=== PATIENT | male | born 1985 | race Caucasian/White ===

== ENCOUNTER 2022-11-08 14:10 | Outpatient (CLI) | payer BC, SELFPAY ==
--- NOTE | ~2022-11-08 | XR_ITS ---
EXAMINATION: XR chest 2V DATE: 11/08/2022 15:09 INDICATION: Hypertension. TECHNIQUE: Frontal and lateral views of the chest were obtained. COMPARISON: None. FINDINGS: There is no pneumonia, pleural effusion, or pneumothorax. The heart size is normal. IMPRESSION: 1. No acute cardiopulmonary disease. Reviewed, dictated and finalized at location L.
--- NOTE | 2022-11-08 14:30 | ECG_ITS ---
Measurements Intervals [place] Rate: 83 P: 66 CA: 141 QRS: 82 QRSD: 109 T: -7 QT: 353 QTc: 415 Interpretive Statements SINUS RHYTHM ST-T WAVE ABNORMALITY IN INFERIOR LEADS- CONSIDER ISCHEMIA ABNORMAL ECG NO PREVIOUS ECG AVAILABLE FOR COMPARISON Electronically Signed On 11-08-2022 15:42:58 CDT by Jeferson Ruiz D.O.
[2022-11-08 15:52] LABS: Thyroid Stimulating Hormone 1.26 uIU/mL (0.36-3.74)
--- NOTE | 2022-11-11 11:57 | WPDHOLTEREM ---
Holter/Event Monitor Holter/Event Monitor Date of procedure: 11/08/22 Holter/Event Procedure: 48 Hr Holter Monitor Indications: Irregular heart beat Conclusion: 1. 48 hour holter monitor on 11/08/22. 2. Underlying rhythm is sinus rhythm. HR range 51-167 bpm; average HR 90 bpm. HR at 167 bpm was at 23:25. 3. There is 1 premature supraventricular complex. No supraventricular tachycardia. 4. There are 7 premature ventricular complexes. No ventricular tachycardia. 5. No sinoatrial or atrioventricular blocks. No significant pauses greater than 2 seconds. 6. Patient reports symptoms of feel hot with abnormal heart beat and chest pain which demonstrate sinus rhythm, HR range 82-115 bpm.
[2022-11-13 11:33] LABS: Testosterone Free 62.5 pg/mL (35.0-155.0); Testosterone Total 295 ng/dL (250-1100)
== END 2022-11-08 14:11 | disposition home or self-care (01) ==
PROVIDERS: PCP Nurse Practitioner Family; Visit Provider Nurse Practitioner Family
DX: R06.02 Shortness of breath (principal); R00.2 Palpitations; R53.83 Other fatigue; I10 Essential (primary) hypertension; R94.31 Abnormal electrocardiogram [ECG] [EKG]
CPT/HCPCS: 36415; 71046; 84402; 84403; 84439; 84443; 93005; 93225; 93226

== ENCOUNTER 2023-02-17 13:27 | Outpatient (CLI) | payer BC, SELFPAY ==
[2023-02-23 13:24] LABS: Block/Specimen ID Not Given; CALR Exon 9 Mutation Not Detected (Not Detected); CSF3R Exon 14/17 Mutation Not Detected (Not Detected); JAK2 Exon 12 Mutation Not Detected (Not Detected); JAK2 V617F Mutation Not Detected (Not Detected); MPL Exon 10 Mutation Not Detected (Not Detected); Specimen Source Blood
== END 2023-02-17 13:28 | disposition home or self-care (01) ==
LOC: ANHLAB 13:28
PROVIDERS: PCP Nurse Practitioner Family; Visit Provider Internal Medicine Hematology & Oncology
DX: D75.1 Secondary polycythemia (principal)
CPT/HCPCS: 36415; 81219; 81270; 81279; 81339; 81479

== ENCOUNTER 2024-02-05 01:25 | Day surgery (SDC) | payer BC, SELFPAY ==
[2024-01-17 12:36] VITALS: BMI 32.2
[2024-02-05 14:04] VITALS: BP 133/94; RESP 20; TEMP 36.6; O2SAT 97
[2024-02-05] MEDS: LACTATED RINGERS 1,000 ML 150 ML IV CONT (14:08)
--- NOTE | 2024-02-05 14:09 | WPDANESEPPF ---
Anes - Initial Pre Proc Eval Procedure: Operation Date: 02/05/24 14:30 Proposed Procedures p Colonoscopy - Rodolfo Schwartz MD Date/Time: 02/05/24 14:09 Surgeon: Rodolfo Schwartz MD Pre Op Diagnosis: Melena Patient Data Age: 38 Gender: M Height: 1.78 m Weight: 101.7 kg Last Vital Signs Temp 97.8 F 02/05/24 14:04 Resp 20 02/05/24 14:04 BP 133/94 H 02/05/24 14:04 Pulse Ox 97 02/05/24 14:04 O2 Del Method Room Air 02/05/24 14:04 Allergies Allergy/AdvReac Type Severity Reaction Status Date / Time cinnamon Allergy Swelling Verified 02/05/24 14:03 of Lip/Tongue/Throat Home Medications Medication Instructions Recorded Confirmed Type metoprolol succinate 100 mg 100 mg PO DAILY #30 tabs 12/28/23 01/17/24 Rx tablet,extended release 24 hr Patient hx anesthesia problems: none Family hx anesthesia problems: none Results Review: All pre-operative results and documents have been reviewed as part of the pre-operative evaluation. 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 Informed Consent: The patient's anesthetic plan and its attendant risks and benefits were discussed with the patient/family/POA. Questions were solicited and answers provided to the satisfaction of the patient/family/POA.
--- NOTE | 2024-02-05 14:30 | PM.HPGS ---
History of Present Illness History of Present Illness Consent: Risks, benefits, and alternatives have been discussed and questions answered. Patient agrees to proceed with procedure. Chief complaint: Melena Narrative: Robin Singh is a 38 year old male here for first colonoscopy, had rectal bleeding Review of Systems Review of Systems: All systems reviewed & are unremarkable except as noted in HPI and below PMFSH Past Medical History Medical History (Updated 02/05/24 @ 14:33 by Rodolfo Schwartz MD) Hypertension Rectal bleeding Social History Social History Smoking status: Never smoker Alcohol intake: never Substance use: never Substance use type: does not use Lack of Transportation: No Lack of Food: Never True Current Housing: I Have Housing Concerned About Future Housing: No Difficulty Paying Gas/Electric Bills: No Difficulty Paying for Meds: No Education: Associate Degree Difficulty w/ Childcare or Family Care: No Living arrangements: with family Occupation/Education: occupation 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 Spiritual care concerns: No Meds Home Medications and Allergies Home Medications Medication Instructions Recorded Confirmed Type metoprolol succinate 100 mg 100 mg PO DAILY #30 tabs 12/28/23 02/05/24 Rx tablet,extended release 24 hr Allergies Allergy/AdvReac Type Severity Reaction Status Date / Time cinnamon Allergy Swelling Verified 02/05/24 14:03 of Lip/Tongue/Throat Vital Signs Vital Signs - 24 hr 02/05/24 14:04 Temperature 97.8 F Respiratory Rate 20 Blood Pressure 133/94 H Pulse Oximetry 97 Oxygen Delivery Room Air Exam Const: General: comfortable and no acute distress HENMT: Face/Nose/Sinus: Normal nares present Eyes: General: appearance normal, both eyes and all related structures Neck: Neck: no JVD Resp: Auscultation: clear to auscultation bilaterally Cardio: Rate: regular rate Rhythm: regular rhythm GI: Inspection: non-distended GI Palp: Yes Soft to palpation Skin: General skin exam: normal color Neuro: General: gait normal Speech: normal speech Extrem: General: normal to inspection Psych: Mental Status: mental status grossly normal Assessment and Plan Assessment and plan (1) Rectal bleeding: Code(s): K62.5 - Hemorrhage of anus and rectum Status: Acute Assessment and Plan: colonoscopy
[2024-02-05 14:51] VITALS: BP 108/69; RESP 23; O2SAT 93
[2024-02-05 15:01] VITALS: BP 109/71; RESP 21; O2SAT 94
[2024-02-05 15:11] VITALS: BP 133/95; RESP 23; O2SAT 95
== END 2024-02-05 14:25 | disposition home or self-care (01) ==
PROVIDERS: PCP Nurse Practitioner Family; Visit Provider Internal Medicine Gastroenterology
PROC: 0DJD8ZZ Inspection of Lower Intestinal Tract, Via Natural or Artificial Opening Endoscopic (ICD-10-PCS; CPT 45378; principal; 2024-02-05 14:30)
DX: K64.8 Other hemorrhoids (principal); I10 Essential (primary) hypertension; E66.9 Obesity, unspecified; Z68.32 Body mass index [BMI] 32.0-32.9, adult
CPT/HCPCS: 45378; J2704; J7120